=== PATIENT | male | born 1985 | race Caucasian/White ===

== ENCOUNTER 2020-02-10 13:18 | Emergency (ER) | payer OTHER, SELFPAY ==
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
[2020-02-10 13:55] VITALS: BP 128/78; PULSE 64; RESP 16; TEMP 36.5; O2SAT 100
[2020-02-10] MEDS: Acetaminophen 500 MG TAB 1000 MG PO (14:35)
[2020-02-10] MEDS: Ibuprofen 600 MG TAB PO (14:35)
--- NOTE | 2020-02-10 14:35 | DI.RAD_ITS ---
EXAM: XR SHOULDER LT COMPLETE 2+V CLINICAL HISTORY: deformity and pain. TECHNIQUE: 2D digital imaging was performed. COMPARISON: No exams were available for comparison FINDINGS: BONES: No acute fracture is present. No bony destructive lesion is seen. JOINTS: There is a grade 3 acromioclavicular joint separation. The distal clavicle is superiorly dis placed relative to the acromion. SOFT TISSUE: Normal. IMPRESSION: Grade 3 AC joint separation. DATA REPOSITORY: RADIATION DOSE DELIVERED:
--- NOTE | 2020-02-10 15:01 | DI.VRAD_ITS ---
PROCEDURE INFORMATION: Exam: XR Left Shoulder Exam date and time: 02/10/2020 2:26 PM Age: 35 years old Clinical indication: Other: Deformity and pain TECHNIQUE: Imaging protocol: XR Left shoulder. Views: 2 or more views. COMPARISON: No relevant prior studies available. FINDINGS: Bones/joints: There is no acute fracture. There is acromioclavicular joint dissociation with superior displacement of distal clavicle which could reflect disruption of acromioclavicular and coracoclavicular ligaments. No acute fracture or dislocation of the glenohumeral joint. Lungs: Visualized lungs are clear. Soft tissues: There is soft tissue prominence over distal end of the clavicle. IMPRESSION: 1. Acromioclavicular joint dissociation with superior elevation of distal clavicle which could reflect ligamentous injury. 2. No acute fracture or dislocation of the glenohumeral joint. Dictated and Authenticated by: Uriel Ovalle MD. Ordering:TYLER Barker MD
[2020-02-10 15:20] VITALS: BP 128/78; PULSE 64; RESP 16; TEMP 36.5; O2SAT 100
== END 2020-02-10 15:21 | disposition home or self-care (01) ==
PROVIDERS: Emergency Provider Physician Assistant
DX: S43.132A Dislocation of left acromioclavicular joint, greater than 200% displacement, initial encounter (principal); V18.0XXA Pedal cycle driver injured in noncollision transport accident in nontraffic accident, initial encounter; Y93.55 Activity, bike riding
CPT/HCPCS: 23540; 73030; L3650